=== PATIENT | female | born 1975 | race Caucasian/White ===

== ENCOUNTER 2017-11-24 10:26 | Emergency (ER) | payer OTHER ==
[2017-11-24 10:32] VITALS: BP 113/76; PULSE 77; RESP 17; TEMP 99; O2SAT 100
[2017-11-24] MEDS ORDERED: Lidocaine 5% Patch TD STA (10:59)
--- NOTE | 2017-11-24 11:02 | C.PDOC ---
History Of Present Illness 41 y/o female presents to the ED complaining of right-sided shoulder pain onset 3 days ago. Patient states the pain began when she woke up. Pain is localized to the back of the shoulder, and worsens with movement. She denies any fever, abdominal pain, chest pain, shortness of breath, midline neck pain, or recent trauma. Patient took Motrin at home with minimal relief. Time Seen by Provider: 11/24/17 10:37 Chief Complaint (Nursing): Upper Extremity Problem/Injury History Per: Patient History/Exam Limitations: no limitations Onset/Duration Of Symptoms: Days (x4) Current Symptoms Are (Timing): Still Present Exacerbating Factor(s): Movement Past Medical History Reviewed: Historical Data, Nursing Documentation, Vital Signs Vital Signs: Last Vital Signs Temp 99 F 11/24/17 10:30 Pulse 77 11/24/17 10:30 Resp 17 11/24/17 10:30 BP 113/76 11/24/17 10:30 Pulse Ox 100 11/24/17 11:45 - Medical History PMH: Hypercholesterolemia, Migraine Family History: States: Unknown Family Hx - Social History Hx Alcohol Use: No Hx Substance Use: No - Immunization History Hx Tetanus Toxoid Vaccination: No Hx Influenza Vaccination: No Hx Pneumococcal Vaccination: No Review Of Systems Except As Marked, All Systems Reviewed And Found Negative. Constitutional: Negative for: Fever, Chills Musculoskeletal: Positive for: Shoulder Pain (right posterior). Negative for: Neck Pain Neurological: Negative for: Weakness, Numbness, Headache Physical Exam - Physical Exam Appears: Well, Non-toxic, No Acute Distress Skin: Normal Color, Warm, Dry Head: Atraumatic, Normacephalic Eye(s): bilateral: Normal Inspection, PERRL, EOMI Neck: Trachea Midline, No Midline Cervical Tenderness, Supple Cardiovascular: Rhythm Regular Respiratory: Normal Breath Sounds Back: No Vertebral Tenderness, Muscle Spasm (of right trapezius) Extremity: Normal ROM (to B/L upper and lower extremities), No Deformity, No Swelling Pulses: Left Radial: Normal, Right Radial: Normal Neurological/Psych: Oriented x3, Normal Speech, Normal Cranial Nerves, Normal Motor, Normal Sensation Gait: Steady ED Course And Treatment O2 Sat by Pulse Oximetry: 100 (RA) Pulse Ox Interpretation: Normal Progress Note: Patient treated with 10 mg PO Flexeril and Lidoderm patch in the ED. On reevaluation patient is resting comfortably and reports improvement in pain. Patient remains afebrile, AAOx3, with steady gait. Patient is stable for discharge home. Reevaluation Time: 11:38 Reassessment Condition: Improved Disposition - Disposition Disposition: HOME/ ROUTINE Disposition Time: 11:44 Condition: GOOD Additional Instructions: Follow-up with PMD within 2 days. Return to ED if condition worsens. Motrin and lidoderm patches for pain. Prescriptions: Lidocaine 5% [Lidoderm] 1 patch TOP DAILY PRN #5 patch PRN Reason: Pain, Moderate (4-7) Instructions: Muscle Spasms (DC) Forms: [employer] (Maori) Print Language: SYRIAC - Clinical Impression Clinical Impression: Muscle spasm - Scribe Statement The provider has reviewed the documentation as recorded by the Scribe (Callie Caraballo) Provider Attestation: All medical record entries made by the Scribe were at my direction and personally dictated by me. I have reviewed the chart and agree that the record accurately reflects my personal performance of the history, physical exam, medical decision making, and the department course for this patient. I have also personally directed, reviewed, and agree with the discharge instructions and disposition.
[2017-11-24] MEDS ORDERED: Lidocaine 5% Patch TD ONE (11:05)
--- NOTE | 2017-11-24 11:05 | C.PDOC ---
Time Seen by Provider: 11/24/17 10:37 Chief Complaint (Nursing): Upper Extremity Problem/Injury Past Medical History Vital Signs: Last Vital Signs Temp 99 F 11/24/17 10:30 Pulse 77 11/24/17 10:30 Resp 17 11/24/17 10:30 BP 113/76 11/24/17 10:30 Pulse Ox 100 11/24/17 10:30 - Medical History PMH: Hypercholesterolemia, Migraine Family History: States: Unknown Family Hx - Social History Hx Alcohol Use: No Hx Substance Use: No - Immunization History Hx Tetanus Toxoid Vaccination: No Hx Influenza Vaccination: No Hx Pneumococcal Vaccination: No ED Course And Treatment O2 Sat by Pulse Oximetry: 100 Disposition - Disposition
== END 2017-11-24 11:53 | disposition home or self-care (01) ==
LOC: C.ER 10:26
DX: M62.838 Other muscle spasm (principal)